=== PATIENT | male | born 1995 | race Caucasian/White ===

== ENCOUNTER 2020-05-23 06:07 | Emergency (ER) | payer OTHER ==
[~2020-05-23] VITALS: Ht 175.3 cm; Wt 81.7 kg
[~2020-05-23 06:07] MED LIST: BENADRYL25 MG PO; NOHOMEMEDICATIONS; PREDNISONE 20 M20 M1 PO; ZANTAC 7575 MG PO
[2020-05-23 06:48] LABS: ABSOLUTE EOSINOPHILS 0.3 thou/uL (0.0-0.7); ABSOLUTE LYMPHOCYTES 2.6 thou/uL (0.8-5.3); ABSOLUTE MONOCYTES 0.8 thou/uL (0.0-1.2); ABSOLUTE NEUTROPHILS 6.3 thou/uL (1.6-8.1); BASOPHILS 0.3 %; EOSINOPHILS 2.6 %; HEMATOCRIT 42.7 % (42.0-52.0); HEMOGLOBIN 14.7 gm/dL (14.0-18.0); LYMPHOCYTES 25.8 %; MCH 30.6 pg (26.0-34.0); MCHC 34.4 g/dL (28.0-37.0); MCV 88.8 fL (80.0-100.0); MONOCYTES 7.6 %; NUCLEATED RBCS 0 /100WBC; PLATELET COUNT* 213 thou/uL (150-400); POLYS 63.7 %; RBC 4.81 mil/uL (4.50-6.00); RDW-CV 12.7 % (10.5-14.5); WBC 9.9 thou/uL (4.0-11.0)
[2020-05-23 06:56] LABS: CALCIUM 9.4 mg/dL (8.5-10.1); CREATININE 1.2 mg/dL (0.6-1.3); POTASSIUM 3.3 mmol/L (3.5-5.1)
[2020-05-23 07:00] LABS: ALBUMIN 3.4 g/dL (3.4-5.0); TOTAL BILIRUBIN 0.4 mg/dL (<0.1-1.0)
[2020-05-23 07:23] LABS: URINE BILIRUBIN NEGATIVE (Negative); URINE BLOOD 1+ (Negative); URINE CLARITY CLEAR; URINE COLOR YELLOW; URINE GLUCOSE-RANDOM NEGATIVE (Negative); URINE KETONES NEGATIVE (Negative); URINE LEUKOCYTES-REFLEX NEGATIVE (Negative); URINE NITRITE-REFLEX NEGATIVE (Negative); URINE PROTEIN TRACE (Negative); URINE SPECIFIC GRAVITY >= 1.030 (1.005-1.030)
[2020-05-23 07:31] LABS: BACTERIA-REFLEX 1-9 Few /HPF (None Seen); HYALINE CASTS 4-10 Moderate /LPF (None Seen); MUCUS 4-6 Moderate strn/LPF (None Seen); SQUAMOUS 0-3 Few /LPF (0-3); URINE WBC-REFLEX 0-5 Rare /HPF (0-5)
[2020-05-23 07:32] LABS: AMP/METHAMP POSITIVE (Negative); BARBITURATES Negative (Negative); BENZODIAZEPINES POSITIVE (Negative); COCAINE Negative (Negative); CRYSTALS None Seen /LPF (None Seen); METHADONE Negative (Negative); OPIATES POSITIVE (Negative); PCP Negative (Negative); THC POSITIVE (Negative); URINE RBC 3-10 Few /HPF (0-2)
[2020-05-23] MEDS ORDERED: NARCAN4 MG NARES (13:36)
[2020-05-23 14:59] VITALS: BP 132/72
--- NOTE | 2020-05-24 13:47 | EKG ---
[place] [address] ELECTROCARDIOGRAM REPORT Name: SADAF BENAVIDEZ RICKY Room: [facility]#: [id number] Admission: 05/23/20 Attend Phys: Discharge: 05/23/20 Date of : 89 Date of Service: 05/23/20613 Report #: [id number] THIS REPORT FOR: //name// [facility] ED Test Date: 2020-05-23 Test Time: 06:14:13 Pat Name: SADAF BENAVIDEZ Department: Room: Gender: Equal Opportunity Director: [place] : [id number] Requested By: Vasile Sanabria Order Number: [id number] Maryam MD: Warren Robertson Measurements Intervals [place] Rate: 104 P: 68 CO: 187 QRS: 65 QRSD: 80 T: 25 QT: 354 QTc: 466 Interpretive Statements Sinus tachycardia Probable left atrial enlargement No previous ECG available for comparison Electronically Signed On 05-24-2020 13:47:24 [employer]NAGER [employer] by Warren Robertson [email or web address] <ELECTRONICALLY SIGNED> By: Warren Robertson MD, [facility] 05/24/20 1347 3 3 Warren Robertson MD, FACC /EPI
== END 2020-05-23 15:02 | disposition still patient (30) ==
LOC: M.ERS 06:07
PROVIDERS: Emergency Medicine Emergency Medical Services; Personal Emergency Response Attendant
DX: T40.2X1A Poisoning by other opioids, accidental (unintentional), initial encounter (principal); Z79.899 Other long term (current) drug therapy; Y92.89 Other specified places as the place of occurrence of the external cause